=== PATIENT | male | born 1980 | race Caucasian/White ===

== ENCOUNTER → 2020-12-09 | Outpatient (CLI) | payer MEDICARE, OTHER ==
[~2020-12-09] MED LIST: AUGMENTIN 875-1 EACH PO; HYDROCODON-ACE1 EAC2 PO; IBU800 MG PO; PERCOCET 10-321 EACH PO; PREDNISONE20 MG PO; VITAMIN C 500500 MG PO; VITAMIN D21250 MCG PO
== END ==
LOC: KOH-I 11:26
DX: S82.52XD Displaced fracture of medial malleolus of left tibia, subsequent encounter for closed fracture with routine healing (principal); S92.002D Unspecified fracture of left calcaneus, subsequent encounter for fracture with routine healing; Z98.890 Other specified postprocedural states; X58.XXXD Exposure to other specified factors, subsequent encounter
CPT/HCPCS: 73610; 73650

== ENCOUNTER → 2020-12-30 | Outpatient (CLI) | payer MEDICARE, OTHER | LOC: KOH-I 11:05 | DX: S92.002D Unspecified fracture of left calcaneus, subsequent encounter for fracture with routine healing (principal); Z98.890 Other specified postprocedural states; X58.XXXD Exposure to other specified factors, subsequent encounter | CPT/HCPCS: 73610; 73650 ==

== ENCOUNTER → 2021-01-27 | Outpatient (CLI) | payer MEDICARE, OTHER | LOC: KOH-I 11:05 | DX: S82.52XD Displaced fracture of medial malleolus of left tibia, subsequent encounter for closed fracture with routine healing (principal) | CPT/HCPCS: 73610; 73650 ==

== ENCOUNTER → 2021-05-05 | Outpatient (CLI) | payer MEDICARE, OTHER | LOC: KOH-I 11:16 | DX: S92.022A Displaced fracture of anterior process of left calcaneus, initial encounter for closed fracture (principal); M19.072 Primary osteoarthritis, left ankle and foot | CPT/HCPCS: 73610; 73630 ==

== ENCOUNTER → 2021-06-16 | Outpatient (CLI) | payer MEDICARE, OTHER | LOC: KOH-I 11:12 | DX: S82.892A Other fracture of left lower leg, initial encounter for closed fracture (principal); S92.002A Unspecified fracture of left calcaneus, initial encounter for closed fracture; S82.52XD Displaced fracture of medial malleolus of left tibia, subsequent encounter for closed fracture with routine healing; S92.002D Unspecified fracture of left calcaneus, subsequent encounter for fracture with routine healing | CPT/HCPCS: 73610; 73630 ==

== ENCOUNTER → 2021-06-20 | Outpatient (CLI) | payer MEDICARE, OTHER | LOC: KOH-I 09:18 | DX: S92.002K Unspecified fracture of left calcaneus, subsequent encounter for fracture with nonunion (principal); M79.89 Other specified soft tissue disorders; Z96.698 Presence of other orthopedic joint implants | CPT/HCPCS: 73700 ==

== ENCOUNTER → 2021-07-28 | Outpatient (CLI) | payer MEDICARE, OTHER | LOC: KOH-I 11:10 | DX: S92.002D Unspecified fracture of left calcaneus, subsequent encounter for fracture with routine healing (principal); S82.52XD Displaced fracture of medial malleolus of left tibia, subsequent encounter for closed fracture with routine healing; X58.XXXD Exposure to other specified factors, subsequent encounter; M19.072 Primary osteoarthritis, left ankle and foot | CPT/HCPCS: 73610; 73630 ==

== ENCOUNTER → 2021-08-19 | Outpatient (CLI) | payer MEDICARE, OTHER | LOC: KOH-I 08-08 15:00 | DX: S92.012 Displaced fracture of body of left calcaneus (principal); S82.52XD Displaced fracture of medial malleolus of left tibia, subsequent encounter for closed fracture with routine healing; M85.872 Other specified disorders of bone density and structure, left ankle and foot | CPT/HCPCS: 73700 ==

== ENCOUNTER → 2021-10-14 | Outpatient (CLI) | payer MEDICARE, OTHER | LOC: KOH-I 10:23 | DX: S92.002D Unspecified fracture of left calcaneus, subsequent encounter for fracture with routine healing (principal); S92.001D Unspecified fracture of right calcaneus, subsequent encounter for fracture with routine healing | CPT/HCPCS: 73610; 73650 ==